=== PATIENT | male | born 1955 | race Caucasian/White ===

== ENCOUNTER 2024-10-19 18:41 | Emergency (ER) | payer SELFPAY ==
[~2024-10-19] VITALS: Ht 167.6 cm; Wt 72.6 kg
[2024-10-19] MEDS ORDERED: Lidocaine 2% Jelly Uro-Jet UR ONE (19:05)
[2024-10-19 19:44] LABS: Source, Urine Foley catheter
[2024-10-19 19:47] LABS: Appearance, Urine Clear (Clear); Bilirubin, Urine Neg (Neg); Blood, Urine 3+ (Neg); Glucose Qualitative, Urine Neg (Neg); Ketones, Urine Neg (Neg); Leukocyte Esterase, Urine Neg (Neg); Nitrite, Urine Neg (Neg); Protein, Urine Neg (Neg); Specific Gravity, Urine 1.015 (1.003-1.022); Urobilinogen, Urine NORM (Normal)
[2024-10-19 19:52] LABS: Color, Urine Pale Yellow (P-Yellow)
[2024-10-19 19:53] LABS: Bacteria Rare /hpf; Squamous Epithelial Cells Rare /hpf (Few); White Blood Cells, Urine 0-2 /hpf (0-5)
== END 2024-10-19 21:02 | disposition home or self-care (01) ==
LOC: ER 18:41
PROVIDERS: Emergency Medicine
DX: R33.9 Retention of urine, unspecified (principal)
CPT/HCPCS: 51702; 51798; 81001; 99283-25